=== PATIENT | female | born 1945 | race Two or more races ===

== ENCOUNTER 2019-07-13 05:03 | Emergency (ER) | payer MEDICARE ==
[~2019-07-13] VITALS: Ht 162.6 cm; Wt 51.0 kg
[2019-07-13 05:07] VITALS: BP 141/78
== END 2019-07-13 05:41 | disposition home or self-care (01) ==
LOC: ED 05:30
DX: I83.892 Varicose veins of left lower extremity with other complications (principal); E78.5 Hyperlipidemia, unspecified; E78.00 Pure hypercholesterolemia, unspecified
CPT/HCPCS: 99282

== ENCOUNTER → 2019-10-30 | Outpatient (CLI) | payer MEDICARE | END | disposition home or self-care (01) | LOC: WOUND 13:34 | PROVIDERS: ATTEND Nurse Practitioner Family | DX: I83.023 Varicose veins of left lower extremity with ulcer of ankle (principal); L97.322 Non-pressure chronic ulcer of left ankle with fat layer exposed; S80.812A Abrasion, left lower leg, initial encounter; I83.811 Varicose veins of right lower extremity with pain; E78.00 Pure hypercholesterolemia, unspecified; E78.5 Hyperlipidemia, unspecified; Z87.891 Personal history of nicotine dependence; X58.XXXA Exposure to other specified factors, initial encounter; Y93.89 Activity, other specified; Y92.89 Other specified places as the place of occurrence of the external cause; Y99.8 Other external cause status | CPT/HCPCS: G0463 ==

== ENCOUNTER → 2019-11-21 | Outpatient (CLI) | payer MEDICARE | END | disposition home or self-care (01) | LOC: CVU 06:43 | PROVIDERS: ATTEND Nurse Practitioner Family | DX: S80.812A Abrasion, left lower leg, initial encounter (principal); I83.813 Varicose veins of bilateral lower extremities with pain; I86.8 Varicose veins of other specified sites; I70.209 Unspecified atherosclerosis of native arteries of extremities, unspecified extremity; X58.XXXA Exposure to other specified factors, initial encounter; Y92.89 Other specified places as the place of occurrence of the external cause; Y93.89 Activity, other specified; Y99.8 Other external cause status; Z87.891 Personal history of nicotine dependence | CPT/HCPCS: 93922; 93925; 93970 ==

== ENCOUNTER 2020-03-21 12:50 | Emergency (ER) | payer MEDICARE ==
[~2020-03-21] VITALS: Ht 154.9 cm; Wt 53.6 kg
--- NOTE | 2020-03-21 13:25 | NUR ---
KITCHEN HELPER: PT AMBULATORY TO ROOM FROM LOBBY AT THIS TIME WITH STEADY GAIT WITH DETECTIVE
--- NOTE | 2020-03-21 13:57 | NUR ---
PT CONNECTED TO MONITORING. CALL LIGHT IN REACH. DAUGHTER AT BEDSIDE.
[2020-03-21 14:11] LABS: BASOPHILS % (AUTO) 0 % (0-1); EOSINOPHILS % (AUTO) 2 % (1-7); LYMPHOCYTES % (AUTO) 15 % (22-44); MEAN CORPUSCULAR HEMOGLOBIN 29.7 pg (27.0-34.8); MEAN PLATELET VOLUME 7.3 fL (7.4-10.4); MONOCYTES % (AUTO) 9 % (2-9); NEUTROPHILS % (AUTO) 74 % (42-75); PLATELET COUNT 262 x10^3/uL (130-400); RED BLOOD COUNT 4.09 x10^6/uL (3.82-5.3)
[2020-03-21 14:16] LABS: MD NO
[2020-03-21 14:23] LABS: ALANINE AMINOTRANSFERASE 24 U/L (12-78); ALBUMIN 3.9 g/dL (3.4-5.0); ANION GAP 4 mmol/L (5-15); CALCIUM 9.1 mg/dL (8.5-10.1); CHLORIDE 109 mmol/L (98-107); CREATININE 0.91 mg/dL (0.55-1.02)
[2020-03-21 14:25] LABS: ALKALINE PHOSPHATASE 99 U/L (45-117); BILIRUBIN,TOTAL 0.6 mg/dL (0.2-1.0); TOTAL PROTEIN 7.8 g/dL (6.4-8.2)
--- NOTE | 2020-03-21 15:13 | NUR ---
US AT BEDSIDE.
[2020-03-21 15:28] VITALS: BP 162/64
[2020-03-21] MEDS ORDERED: ATOR10TA9 PO (15:29)
--- NOTE | 2020-03-21 15:30 | NUR ---
ALL RESULTS ARE BACK AT THIS TIME. CHART UP FOR RECHECK.
--- NOTE | 2020-03-21 15:33 | NUR ---
MD AT BEDSIDE TO UPDATE PT ON POC.
== END 2020-03-21 16:59 | disposition home or self-care (01) ==
LOC: ED 15:58
DX: I83.029 Varicose veins of left lower extremity with ulcer of unspecified site (principal); R60.0 Localized edema; R07.89 Other chest pain; R00.2 Palpitations; R42 Dizziness and giddiness; R11.2 Nausea with vomiting, unspecified; R19.7 Diarrhea, unspecified; R51.9 Headache, unspecified; Z87.891 Personal history of nicotine dependence
CPT/HCPCS: 36415; 80053; 85025; 99284

== ENCOUNTER → 2020-03-28 | Outpatient (CLI) | payer MEDICARE ==
[~2020-03-28] MED LIST: ATOR10TA9 PO
== END | disposition home or self-care (01) ==
LOC: WOUND 09:52
PROVIDERS: ATTEND Internal Medicine
DX: I83.028 Varicose veins of left lower extremity with ulcer other part of lower leg (principal); L97.222 Non-pressure chronic ulcer of left calf with fat layer exposed; S80.812D Abrasion, left lower leg, subsequent encounter; I83.811 Varicose veins of right lower extremity with pain; L03.116 Cellulitis of left lower limb; I87.2 Venous insufficiency (chronic) (peripheral); I10 Essential (primary) hypertension; E78.5 Hyperlipidemia, unspecified; Z87.891 Personal history of nicotine dependence; X58.XXXD Exposure to other specified factors, subsequent encounter
CPT/HCPCS: 97597

== ENCOUNTER 2020-04-04 08:09 | Outpatient (CLI) | payer MEDICARE | END 2020-04-04 23:59 | disposition home or self-care (01) | LOC: WOUND 08:09 | PROVIDERS: ATTEND Internal Medicine Cardiovascular Disease | DX: I83.023 Varicose veins of left lower extremity with ulcer of ankle (principal); L97.322 Non-pressure chronic ulcer of left ankle with fat layer exposed; I83.028 Varicose veins of left lower extremity with ulcer other part of lower leg; L97.222 Non-pressure chronic ulcer of left calf with fat layer exposed; S80.812D Abrasion, left lower leg, subsequent encounter; I83.811 Varicose veins of right lower extremity with pain; L03.116 Cellulitis of left lower limb; I10 Essential (primary) hypertension; E78.5 Hyperlipidemia, unspecified; Z87.891 Personal history of nicotine dependence; X58.XXXD Exposure to other specified factors, subsequent encounter | CPT/HCPCS: G0463 ==

== ENCOUNTER → 2020-04-11 | Outpatient (CLI) | payer MEDICARE | END | disposition home or self-care (01) | LOC: WOUND 08:14 | PROVIDERS: ATTEND Internal Medicine | DX: I83.022 Varicose veins of left lower extremity with ulcer of calf (principal); L97.222 Non-pressure chronic ulcer of left calf with fat layer exposed; S80.812D Abrasion, left lower leg, subsequent encounter; L03.116 Cellulitis of left lower limb; I83.811 Varicose veins of right lower extremity with pain; I87.2 Venous insufficiency (chronic) (peripheral); I10 Essential (primary) hypertension; E78.5 Hyperlipidemia, unspecified; Z87.891 Personal history of nicotine dependence; X58.XXXD Exposure to other specified factors, subsequent encounter | CPT/HCPCS: G0463 ==

== ENCOUNTER 2020-06-05 12:19 | Day surgery (SDC) | payer MEDICARE ==
[2020-06-05] MEDS ORDERED: LIDOCAINE 2%, 20ML ONE (13:53)
== END 2020-06-05 15:29 | disposition home or self-care (01) ==
LOC: CACL 12:19
PROVIDERS: ATTEND Internal Medicine Cardiovascular Disease
DX: I83.228 Varicose veins of left lower extremity with both ulcer of other part of lower extremity and inflammation (principal); I83.812 Varicose veins of left lower extremity with pain; E78.5 Hyperlipidemia, unspecified; Z79.899 Other long term (current) drug therapy; Z87.891 Personal history of nicotine dependence; Z88.8 Allergy status to other drugs, medicaments and biological substances
CPT/HCPCS: 36482; C1894

== ENCOUNTER 2020-06-09 07:38 | Outpatient (CLI) | payer MEDICARE | END 2020-06-09 23:59 | disposition home or self-care (01) | LOC: CVU 07:38 | PROVIDERS: ATTEND Internal Medicine Cardiovascular Disease | DX: I83.813 Varicose veins of bilateral lower extremities with pain (principal) | CPT/HCPCS: 93970 ==

== ENCOUNTER → 2020-08-08 | Outpatient (CLI) | payer MEDICARE | END | disposition home or self-care (01) | LOC: WOUND 07:54 | PROVIDERS: ATTEND Internal Medicine | DX: I83.813 Varicose veins of bilateral lower extremities with pain (principal); R21 Rash and other nonspecific skin eruption; I10 Essential (primary) hypertension; E78.5 Hyperlipidemia, unspecified; Z87.891 Personal history of nicotine dependence; Z79.899 Other long term (current) drug therapy; Z98.890 Other specified postprocedural states | CPT/HCPCS: G0463 ==